=== PATIENT | female | born 1995 | race Caucasian/White ===

== ENCOUNTER → 2017-09-26 | Emergency (ER) | payer SELFPAY ==
[2017-09-27] MEDS: ONDANSETRON (ODT) 4 MG TAB ODT (00:33)
[2017-09-27] MEDS: ACET/BUTAL/CAFF TAB PO (00:33)
== END | disposition home or self-care (01) ==
LOC: FTE 21:49
DX: R51 Headache (principal); R11.0 Nausea
CPT/HCPCS: 99284